=== PATIENT | female | born 1990 | race Caucasian/White ===

== ENCOUNTER 2017-01-27 17:30 | Outpatient (CLI) | payer BC | END 2017-01-27 18:53 | disposition home or self-care (01) | LOC: GENOP 17:30 | DX: O36.8130 Decreased fetal movements, third trimester, not applicable or unspecified (principal); Z3A.38 38 weeks gestation of pregnancy | CPT/HCPCS: 59025; 83518 ==

== ENCOUNTER 2017-02-14 05:13 | Inpatient (IN) | payer BC ==
[~2017-02-14] VITALS: Ht 165.1 cm; Wt 128.4 kg
[2017-02-14 05:58] LABS: HEMOGLOBIN 12.8 gm/dl (12.3-15.3); RED BLOOD COUNT 4.05 M/UL (4.00-5.10); WHITE BLOOD COUNT 9.4 K/UL (4.5-11.0)
[2017-02-15 03:38] LABS: HEMOGLOBIN 11.2 gm/dl (12.3-15.3)
== END 2017-02-16 13:08 | disposition home or self-care (01) | DRG 775 ==
LOC: OB 05:13
PROVIDERS: ADMIT Obstetrics & Gynecology
PROC: 10E0XZZ Delivery of Products of Conception, External Approach (ICD-10-PCS; principal; 2017-02-14)
PROC: 0UQMXZZ Repair Vulva, External Approach (ICD-10-PCS; 2017-02-14)
PROC: 10907ZC Drainage of Amniotic Fluid, Therapeutic from Products of Conception, Via Natural or Artificial Opening (ICD-10-PCS; 2017-02-14)
PROC: 3E0234Z Introduction of Serum, Toxoid and Vaccine into Muscle, Percutaneous Approach (ICD-10-PCS; 2017-02-14)
DX: O70.0 First degree perineal laceration during delivery (principal); O36.0930 Maternal care for other rhesus isoimmunization, third trimester, not applicable or unspecified; Z3A.38 38 weeks gestation of pregnancy; Z37.0 Single live birth; Z23 Encounter for immunization; J45.909 Unspecified asthma, uncomplicated; O99.843 Bariatric surgery status complicating pregnancy, third trimester; O99.213 Obesity complicating pregnancy, third trimester; E66.01 Morbid (severe) obesity due to excess calories
CPT/HCPCS: 36415; 51703; 81001; 82800; 85014; 85018; 85025; 85461; 86850; 86900; 86901; J2300; J2405; J2790; J2795; J7120

== ENCOUNTER 2017-04-07 08:26 | Emergency (ER) | payer BC | END 2017-04-07 10:05 | disposition home or self-care (01) | LOC: ER1 08:26 | DX: J06.9 Acute upper respiratory infection, unspecified (principal) | CPT/HCPCS: 99282 ==

== ENCOUNTER 2021-11-14 01:54 | Outpatient (CLI) | payer OTHER ==
[~2021-11-14 01:54] MED LIST: AUGMENTIN 875-1 EACH PO; COLACE 100MG C100 MG PO; NAPROSYN500 MG PO; NAPROXEN500 MG PO; OXYCODONE HCL5 M1 PO; PRENATAL VITAM1 EAC8 PO
== END 2021-11-14 08:52 | disposition home or self-care (01) ==
LOC: GENOP 01:54
DX: O47.03 False labor before 37 completed weeks of gestation, third trimester (principal); O36.0930 Maternal care for other rhesus isoimmunization, third trimester, not applicable or unspecified; O99.513 Diseases of the respiratory system complicating pregnancy, third trimester; J45.909 Unspecified asthma, uncomplicated; Z3A.35 35 weeks gestation of pregnancy; Z98.890 Other specified postprocedural states
CPT/HCPCS: 81001; 96360; 96361; 96372; J3105

== ENCOUNTER 2021-12-06 16:44 | Inpatient (IN) | payer OTHER ==
[~2021-12-06] VITALS: Ht 165.1 cm; Wt 99.8 kg
[2021-12-06 18:25] LABS: HEMOGLOBIN 11.8 gm/dl (12.3-15.3); RED BLOOD COUNT 3.83 M/UL (4.00-5.10); WHITE BLOOD COUNT 7.6 K/UL (4.5-11.0)
[2021-12-06] MEDS ORDERED: PRENATAL VITAM1 EAC3 PO (18:36)
[2021-12-06] MEDS ORDERED: HAIR SKIN NAIL1 EACH PO (18:37)
[2021-12-07] MEDS ORDERED: FERROUS SULFAT325 MG PO (11:22)
[2021-12-07] MEDS ORDERED: COLACE 100MG C100 MG PO (11:22)
[2021-12-07] MEDS ORDERED: IBUPROFEN600 MG PO (11:22)
[2021-12-08 07:05] LABS: HEMOGLOBIN 11.6 gm/dl (12.3-15.3)
== END 2021-12-08 14:03 | disposition home or self-care (01) | DRG 807 ==
LOC: GENOP 16:44 → OB 17:42
PROVIDERS: Obstetrics & Gynecology; ADMIT Obstetrics & Gynecology
PROC: 10907ZC Drainage of Amniotic Fluid, Therapeutic from Products of Conception, Via Natural or Artificial Opening (ICD-10-PCS; principal; 2021-12-07)
PROC: 10E0XZZ Delivery of Products of Conception, External Approach (ICD-10-PCS; 2021-12-07)
PROC: 3E033VJ Introduction of Other Hormone into Peripheral Vein, Percutaneous Approach (ICD-10-PCS; 2021-12-07)
PROC: 4A1H7CZ Monitoring of Products of Conception, Cardiac Rate, Via Natural or Artificial Opening (ICD-10-PCS; 2021-12-07)
PROC: 10H073Z Insertion of Monitoring Electrode into Products of Conception, Via Natural or Artificial Opening (ICD-10-PCS; 2021-12-07)
PROC: 10H07YZ Insertion of Other Device into Products of Conception, Via Natural or Artificial Opening (ICD-10-PCS; 2021-12-07)
DX: O99.214 Obesity complicating childbirth (principal); Z37.0 Single live birth; E66.9 Obesity, unspecified; O99.52 Diseases of the respiratory system complicating childbirth; Z20.822 Contact with and (suspected) exposure to COVID-19; J45.909 Unspecified asthma, uncomplicated; Z3A.39 39 weeks gestation of pregnancy; Z90.49 Acquired absence of other specified parts of digestive tract; Z98.890 Other specified postprocedural states; Z98.84 Bariatric surgery status; Z82.49 Family history of ischemic heart disease and other diseases of the circulatory system; Z83.3 Family history of diabetes mellitus; Z80.8 Family history of malignant neoplasm of other organs or systems; Z80.6 Family history of leukemia; Z83.2 Family history of diseases of the blood and blood-forming organs and certain disorders involving the immune mechanism; Z84.89 Family history of other specified conditions; Z23 Encounter for immunization
CPT/HCPCS: 36415; 81001; 85014; 85018; 85025; 86900; 86901; G0378; J0595; J2405; J2590; J7120